=== PATIENT | male | born 2000 | race Hispanic/Latino ===

== ENCOUNTER 2021-11-24 17:15 | Emergency (ER) | payer SELFPAY | END 2021-11-24 19:00 | disposition home or self-care (01) | LOC: MADERS 17:15 | DX: S00.83XA Contusion of other part of head, initial encounter (principal); F17.290 Nicotine dependence, other tobacco product, uncomplicated; Y04.2XXA Assault by strike against or bumped into by another person, initial encounter; Y92.69 Other specified industrial and construction area as the place of occurrence of the external cause | CPT/HCPCS: 70486 ==